=== PATIENT | male | born 1965 | race Caucasian/White ===

== ENCOUNTER 2018-07-31 07:28 | Inpatient (IN) | payer BC ==
[2018-07-31 08:04] LABS: ABS Basophils 0.2 10^3/ul (0-0.2); ABS Eosinophils 0.1 10^3/ul (0-0.6); ABS Lymphocytes 1.7 10^3/ul (1.0-4.8); ABS Monocytes 0.4 10^3/ul (0-0.8); ABS Neutrophils 12.1 10^3/ul (1.5-7.7); ABS Nucleated RBC 0 10^3/ul; Eosinophil % 0.4 %; Hematocrit 51 % (42-52); Hemoglobin 16.6 g/dl (14.0-18.0); Lymphocyte % 11.5 %; Mean Corpuscular HGB Conc 33 g/dl (31-36); Mean Corpuscular Hemoglobin 28 pg (27-31); Mean Corpuscular Volume 85 fL (80-94); Mean Platelet Volume 7.1 fL (7.4-10.4); Nucleated Red Blood Cells % 0; Platelet Count 321 10^3/ul (150-450); Red Blood Count 5.97 10^6/ul (4.00-5.40); Red Cell Distribution Width 13 % (10.5-15); White Blood Count 14.4 10^3/ul (3.5-10.8)
[2018-07-31] MEDS: NS 0.9% 1000 ML** 2,000 ML IV ONE ×2 (08:17→08:24)
[2018-07-31 08:20] LABS: Albumin 4.3 g/dL (3.2-5.2); Albumin/Globulin Ratio 1.5 (1-3); BUN/Creatinine Ratio 30.6 (8-20); C Reactive Protein 5.68 mg/L (<8.01); Calcium 9.6 mg/dL (8.6-10.3); EGFR African American 75.6 (>60); EGFR Non-African American 62.5 (>60); Globulin 2.9 g/dL (2-4); Total Bilirubin 0.9 mg/dL (0.2-1.0); Total Protein 7.2 g/dL (6.4-8.9)
[2018-07-31] MEDS ORDERED: Ondansetron INJ* 2 MG/ML VIAL ONE (08:21)
[2018-07-31] MEDS ORDERED: Ondansetron INJ* 2 MG/ML VIAL IV ONE (08:23)
[2018-07-31 08:37] LABS: Potassium 5.1 mmol/L (3.5-5.0)
--- NOTE | 2018-07-31 08:45 | ED ---
HPI Diabetic - HPI Summary HPI Summary: A 52 y/o male presents to the ED c/o DKA. In the ED room, the patient has a pulse of 87 BPM, respiratory rate of 18, and blood pressure of 135/97. According to the patient, he thinks he has DKA as he is a Type I diabetic. He stated that he is on an insulin pump. He noted that the nausea and dehydration started last night, but became worse this morning. He thinks he has a "bad site " with his insulin pump. He was fine all day yesterday, but be did a site change last night, which is when he stated feeling ill. Patient noted that he has a "busted rib" on his left side. Patient denies any cough, fevers, SOB, or CP. - History Of Current Complaint Chief Complaint: EDDiabeticProb Time Seen by Provider: 07/31/18 07:44 Hx Obtained From: Patient Onset/Duration: Sudden Onset, Lasting Hours Timing: Hours Severity Currently: None Aggravating: Nothing Alleviating: Nothing Associated Signs & Symptoms: Nausea - Allergies/Home Medications Allergies/Adverse Reactions: Allergies Allergy/AdvReac Type Severity Reaction Status Date / Time ofloxacin Allergy Anaphylatic Verified 07/31/18 10:08 Shock Penicillins Allergy Anaphylatic Verified 07/31/18 10:08 Shock cheese AdvReac GI Upset Verified 07/31/18 08:38 Home Medications: Home Medications Atorvastatin* [Lipitor*] 40 mg PO DAILY 07/31/18 [History Confirmed 07/31/18] Dapagliflozin 10 mg Tab (Nf) [Farxiga] 10 mg PO DAILY 07/31/18 [History Confirmed 07/31/18] Escitalopram (NF) [Lexapro 10 mg (NF)] 10 mg PO DAILY 07/31/18 [History Confirmed 07/31/18] Glucagon,Human Recombinant [Glucagon Emergency Kit] 1 mg INJ ONCE PRN 07/31/18 [ History Confirmed 07/31/18] Insulin ASPART (NF) [Novolog (NF)] 0 - 75 units SUBCUT DAILY MDD 75 units [History Confirmed 07/31/18] Methylphenidate TAB* [Ritalin TAB*] 20 mg PO QAM 07/31/18 [History Confirmed ] Montelukast Sodium TAB* [Singulair TAB*] 10 mg PO BEDTIME 07/31/18 [History Confirmed 07/31/18] Ramipril CAP* [Altace CAP*] 5 mg PO DAILY 07/31/18 [History Confirmed 07/31/18] lamoTRIgine TAB(*) [LaMICtal TAB(*)] 150 mg PO DAILY 07/31/18 [History Confirmed 07/31/18] PMH/Surg Hx/FS Hx/Imm Hx Endocrine/Hematology History: Reports: Hx Diabetes Cardiovascular History: Denies: Hx Hypertension - Surgical History Surgery Procedure, Year, and Place: none Infectious Disease History: No Infectious Disease History: Denies: Traveled Outside the [place] in Last 30 Days - Family History Known Family History: Negative: Hypertension - Social History Alcohol Use: None Hx Substance Use: No Substance Use Type: Reports: None Smoking Status (MU): Never Smoked Tobacco Review of Systems Positive: Other - POSITIVE: DEHYDRATION. Negative: Fever Negative: Chest Pain Negative: Shortness Of Breath, Cough Positive: Nausea All Other Systems Reviewed And Are Negative: Yes Physical Exam - Summary Physical Exam Summary: VITAL SIGNS: Reviewed. GENERAL: Patient is a well-developed and nourished male who is lying comfortable in the stretcher. Patient is not in any acute respiratory distress. HEAD AND FACE: No signs of trauma. No ecchymosis, hematomas or skull depressions. No sinus tenderness. EYES: PERRLA, EOMI x 2, No injected conjunctiva, no nystagmus. EARS: Hearing grossly intact. Ear canals and tympanic membranes are within normal limits. MOUTH: Oropharynx within normal limits. Dry oral mucosa. NECK: Supple, trachea is midline, no adenopathy, no JVD, no carotid bruit, no c- spine tenderness, neck with full ROM. CHEST: Symmetric, tenderness on left side rib cage LUNGS: Clear to auscultation bilaterally. No wheezing or crackles. CVS: Regular rate and rhythm, S1 and S2 present, no murmurs or gallops appreciated. ABDOMEN: Soft, non-tender. No signs of distention. No rebound no guarding, and no masses palpated. Bowel sounds are normal. EXTREMITIES: FROM in all major joints, no edema, no cyanosis or clubbing. NEURO: Alert and oriented x 3. No acute neurological deficits. Speech is normal and follows commands. SKIN: Dry and warm Triage Information Reviewed: Yes Vital Signs On Initial Exam: Initial Vitals Temp Pulse Resp BP Pulse Ox 97 F 103 16 144/89 98 07/31/18 07:29 07/31/18 07:29 07/31/18 07:29 07/31/18 07:29 07/31/18 07:29 Vital Signs Reviewed: Yes Diagnostics - Vital Signs Vital Signs Temp Pulse Resp BP Pulse Ox 07/31/18 07:29 97 F 103 16 144/89 98 - Laboratory Lab Results: Lab Results 07/31/18 07/31/18 07/31/18 Range/Units 07:00 07:00 07:00 WBC 14.4 H (3.5-10.8) 10^3/ul RBC 5.97 H (4.00-5.40) 10^6/ul Hgb 16.6 (14.0-18.0) g/dl Hct 51 (42-52) % MCV 85 (80-94) fL MCH 28 (27-31) pg MCHC 33 (31-36) g/dl RDW 13 (10.5-15) % Plt Count 321 (150-450) 10^3/ul MPV 7.1 L (7.4-10.4) fL Neut % (Auto) 84.2 % Lymph % (Auto) 11.5 % Yates % (Auto) 2.8 % Eos % (Auto) 0.4 % Baso % (Auto) 1.1 % Absolute Neuts (auto) 12.1 H (1.5-7.7) 10^3/ul Absolute Lymphs (auto) 1.7 (1.0-4.8) 10^3/ul Absolute Monos (auto) 0.4 (0-0.8) 10^3/ul Absolute Eos (auto) 0.1 (0-0.6) 10^3/ul Absolute Basos (auto) 0.2 (0-0.2) 10^3/ul Absolute Nucleated RBC 0 10^3/ul Nucleated RBC % 0 VBG pH (7.32-7.43) VBG pCO2 (41-51) mmHg VBG pO2 (35-45) mmHg VBG HCO3 (24-28) mmol/L VBG O2 Saturation (70-80) % VBG Base Excess (0.0-4.0) mmol/L Sodium 132 L (135-145) mmol/L Potassium 5.1 H (3.5-5.0) mmol/L Chloride 93 L (101-111) mmol/L Carbon Dioxide 20 L (22-32) mmol/L Anion Gap 19 H (2-11) mmol/L BUN 37 H (6-24) mg/dL Creatinine 1.21 H (0.67-1.17) mg/dL Est GFR ( Amer) 75.6 (>60) Est GFR (Non-Af Amer) 62.5 (>60) BUN/Creatinine Ratio 30.6 H (8-20) Glucose 505 H* (70-100) mg/dL POC Glucose (mg/dL) (70-100) mg/dL Lactic Acid 2.3 H* (0.5-2.0) mmol/L Calcium 9.6 (8.6-10.3) mg/dL Total Bilirubin 0.90 (0.2-1.0) mg/dL AST 11 L (13-39) U/L ALT 16 (7-52) U/L Alkaline Phosphatase 226 H (34-104) U/L C-Reactive Protein 5.68 (<8.01) mg/L Total Protein 7.2 (6.4-8.9) g/dL Albumin 4.3 (3.2-5.2) g/dL Globulin 2.9 (2-4) g/dL Albumin/Globulin Ratio 1.5 (1-3) 07/31/18 07/31/18 Range/Units 07:00 07:42 WBC (3.5-10.8) 10^3/ul RBC (4.00-5.40) 10^6/ul Hgb (14.0-18.0) g/dl Hct (42-52) % MCV (80-94) fL MCH (27-31) pg MCHC (31-36) g/dl RDW (10.5-15) % Plt Count (150-450) 10^3/ul MPV (7.4-10.4) fL Neut % (Auto) % Lymph % (Auto) % Yates % (Auto) % Eos % (Auto) % Baso % (Auto) % Absolute Neuts (auto) (1.5-7.7) 10^3/ul Absolute Lymphs (auto) (1.0-4.8) 10^3/ul Absolute Monos (auto) (0-0.8) 10^3/ul Absolute Eos (auto) (0-0.6) 10^3/ul Absolute Basos (auto) (0-0.2) 10^3/ul Absolute Nucleated RBC 10^3/ul Nucleated RBC % VBG pH 7.21 L (7.32-7.43) VBG pCO2 44 (41-51) mmHg VBG pO2 43.0 (35-45) mmHg VBG HCO3 16.4 L (24-28) mmol/L VBG O2 Saturation 69.7 L (70-80) % VBG Base Excess -10.0 L (0.0-4.0) mmol/L Sodium (135-145) mmol/L Potassium (3.5-5.0) mmol/L Chloride (101-111) mmol/L Carbon Dioxide (22-32) mmol/L Anion Gap (2-11) mmol/L BUN (6-24) mg/dL Creatinine (0.67-1.17) mg/dL Est GFR ( Amer) (>60) Est GFR (Non-Af Amer) (>60) BUN/Creatinine Ratio (8-20) Glucose (70-100) mg/dL POC Glucose (mg/dL) > 444 H* (70-100) mg/dL Lactic Acid (0.5-2.0) mmol/L Calcium (8.6-10.3) mg/dL Total Bilirubin (0.2-1.0) mg/dL AST (13-39) U/L ALT (7-52) U/L Alkaline Phosphatase (34-104) U/L C-Reactive Protein (<8.01) mg/L Total Protein (6.4-8.9) g/dL Albumin (3.2-5.2) g/dL Globulin (2-4) g/dL Albumin/Globulin Ratio (1-3) Result Diagrams: 07/31/18 07:00 07/31/18 16:09 Lab Statement: Any lab studies that have been ordered have been reviewed, and results considered in the medical decision making process. - Radiology CXR Radiology Interpretation Completed By: Radiologist Summary of Radiographic Findings: No active cardiopulmonary disease is noted. ED PHYSICIAN REVIEWED THIS RADIOLOGY REPORT. - EKG 0812 Cardiac Rate: NL - 79 BPM EKG Rhythm: Sinus Rhythm - 79 BPM Summary of EKG Findings: no ST elevations Re-Evaluation - Re-Evaluation First Eval Re-Evaluation Time: 08:54 Change: Unchanged Comment: Awaiting call back from train station server. Diabetic Course/Dx - Course Assessment/Plan: A 52 y/o male presents to the ED c/o DKA. In the ED room, the patient has a pulse of 87 BPM, respiratory rate of 18, and blood pressure of 135 /97. According to the patient, he thinks he has DKA as he is a Type I diabetic. He stated that he is on an insulin pump. He noted that the nausea and dehydration started last night, but became worse this morning. He thinks he has a "bad site" with his insulin pump. He was fine all day yesterday, but be did a site change last night, which is when he started feeling ill. Patient noted that he has a "busted rib" on his left side. Patient denies any cough, fevers, SOB, or CP. Initially the patient was placed in a cardiac rehab nurse, IV access was obtained and he was given 2 L of IV fluids. Blood work shows wbcs of 14.4 , normal H&H and normal platelets. VBG with a pH of 7.21. CMP shows a sodium 132, potassium 5.1, carbon dioxide is 20, and annual gap is 19 consistent with a DKA. BUN is 37 and creatinine 1.21. Glucose is 505, lactic acid is 2.3, probably secondary to the hyperglycemia. The patient has nausea therefore he was given 4 mg of Zofran and the patient feels better. The patient is able to tolerate ice chips. Patient was started on an insulin drip. I discuss my physical exam, findings and test results with Dr. Navas from the hospitalist services and he agrees to admit patient to his services. Patient is hemodynamically stable alert and oriented x 3. - Diagnoses Differential Dx: Diabetic Ketoacidosis, Hyperglycemia Provider Diagnoses: DKA (diabetic ketoacidosis) - Physician Notifications Discussed Care Of Patient With: Edwin Navas Time Discussed With Above Provider: 09:45 Instructed by Provider To: Other - Accepts patient for admission. - Critical Care Time Critical Care Time: 75-104 min Discharge - Sign-Out/Discharge Documenting (check all that apply): Patient Departure - ADMIT, Sign-Out Patient - YOSEF Signing out patient TO: Edwin Yosef Receiving patient FROM: Eduardo Garza - Discharge Plan Condition: Stable Disposition: ADMITTED TO [facility] - Billing Disposition and Condition Condition: STABLE Disposition: Admitted to [facility] - Attestation Statements Document Initiated by Scribe: Yes Documenting Scribe: Sincere Ferrer Provider For Whom Scribe is Documenting (Include Credential): Eduardo Garza MD Scribe Attestation: Sincere Cervantes, scribed for Eduardo Garza MD on 07/31/18 at 1842. Scribe Documentation Reviewed: Yes Provider Attestation: The documentation as recorded by the Sincere tesfaye accurately reflects the service I personally performed and the decisions made by Eduardo russell MD Status of Scribe Document: Viewed Attestations Scribe Attestation: Sincere Ferrer User Type: Provider
[2018-07-31 08:49] LABS: Urine Appearance Clear; Urine Bilirubin Negative (Negative); Urine Blood Negative (Negative); Urine Color Straw; Urine Glucose 3+(>=500 mg/dL) (Negative); Urine Ketones 2+ (Negative); Urine Nitrite Negative (Negative); Urine Protein Negative (Negative); Urine Specific Gravity 1.028 (1.010-1.030); Urine Urobilinogen Negative (Negative)
[2018-07-31] MEDS ORDERED: Insulin IVPB 100 units/100 ml 100 UNITS/100 ML UNIT IVPB SCH (09:00)
[2018-07-31 09:05] LABS: Magnesium 2.3 mg/dL (1.9-2.7)
[2018-07-31 09:08] LABS: Barbiturates Urine Screen None Detected (None Detect); Benzodiazepine Urine Screen None Detected (None Detect); Urine Cannabinoids Screen None Detected (None Detect)
[2018-07-31] MEDS ORDERED: Ondansetron INJ* 2 MG/ML VIAL IV PRN (10:26)
[2018-07-31] MEDS ORDERED: Acetaminophen TAB* 325 MG PO PRN (10:26)
[2018-07-31] MEDS ORDERED: NS 0.9% 1000 ML** 1,000 ML IV SCH (10:30)
[2018-07-31 11:14] LABS: BUN/Creatinine Ratio 33.3 (8-20); Calcium 8.9 mg/dL (8.6-10.3); EGFR African American 83.5 (>60); Potassium 4.6 mmol/L (3.5-5.0)
[2018-07-31 12:42] LABS: Albumin 4.1 g/dL (3.2-5.2); Albumin/Globulin Ratio 1.6 (1-3); BUN/Creatinine Ratio 34.7 (8-20); Calcium 8.9 mg/dL (8.6-10.3); EGFR African American 93.1 (>60); Globulin 2.5 g/dL (2-4); Potassium 4.2 mmol/L (3.5-5.0); Total Bilirubin 0.6 mg/dL (0.2-1.0); Total Protein 6.6 g/dL (6.4-8.9)
--- NOTE | 2018-07-31 13:59 | HP ---
CC: Dr. Brian Mistry, [facility] * DATE OF ADMISSION: 07/31/2018. PRIMARY CARE PHYSICIAN: Dr. Brian Mistry, [facility]. HEALTHCARE PROXY: His mother Sofy. CODE STATUS: Full. History obtained from interview with patient and review of past medical records. RELIABILITY: Good. CHIEF COMPLAINT: Nausea and vomiting. HISTORY OF PRESENT ILLNESS: This is a 52-year-old man with a past medical history of type 1 diabetes diagnosed in 1996 with a strong family history of type 1 diabetes in his two brothers and his sister who had been feeling well yesterday when he woke up in the afternoon, did a site change for his insulin infusion pump, woke up overnight with increased urination as well as thirst. He woke up in the morning, his fingerstick was about in the 380s which he administered bolus insulin from his pump for correction. 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 He pulled over and vomited and continued on to work where he had several more episodes of emesis. He suspected he was going into DKA and for that reason presented to the emergency room. Other associated symptoms present this morning prior to presenting to the emergency room include headache and malaise. He denies any recent cough, fevers, chills, night sweats, symptoms, skin rash, changes in medication, or penile discharge. He does note two weeks prior to presentation he had a fall where he suffered rib fractures on the left posterior. He also identifies increased stress recently which has been a trigger in the past for DKA. He notes his diet has changed, but to include eating smaller portions more regularly. Of note, during the physical exam we removed the catheter that should have been infusing insulin from his pump from the site on his belly and identified a kinked tubing inhibiting the administration of insulin since he changed the site yesterday afternoon. PAST MEDICAL/SURGICAL HISTORY: Include type 1 diabetes since 1996, hypertension , hyperlipidemia, bipolar disorder, appendectomy, tonsillectomy, rhinoplasty, broken ribs, left eye laser surgery two weeks prior to presentation. MEDICATIONS: Pharmacy is [facility] in [place]. The patient has a poor recollection of the precise medications and there doses: 1. Lamictal 1.5 tabs daily. 2. Ramipril. 3. Escitalopram. 4. Farxiga. 5. Insulin pump which administers 1.1 units per hour in addition to sliding scale based on fingersticks. ALLERGIES: CHEESE, PENICILLIN (CAUSED SHOCK/ANAPHYLAXIS AT AGE [id number]). FAMILY HISTORY: Notable for two brothers and a sister with type 1 diabetes. Father had either CAD or an aortic dissection, was at 58. SOCIAL HISTORY: Never tobacco, was a heavy drinker 15 years prior to presentation, history of polysubstance abuse 20 years prior to presentation. No IV drug use. REVIEW OF SYSTEMS: As per HPI, otherwise all of systems negative. PHYSICAL EXAMINATION GENERAL: Lying flat, interactive, pleasant, no apparent distress. VITAL SIGNS: In the emergency room as seen by this author, blood pressure 116/ 65, heart rate 80, respiratory rate 14, T-max in the emergency room is 97 Fahrenheit. HEENT: Oropharynx is clear. He has dry mucus membranes. Sclerae are anicteric. NECK: He has a nonelevated JVD. LUNGS: Clear to auscultation. HEART: Irregular rate and rhythm with no murmurs, rubs or gallops. ABDOMEN: Soft, nontender. He does have some tenderness over his left flank in the area where he had a recent rib fracture. EXTREMITIES: Warm, well-perfused. Less than two second cap refill. Good peripheral pulses. No clubbing, cyanosis, or edema. NEUROLOGIC: He is alert and oriented times three. His cranial nerves II through XII are intact. He has no apparent anxiety, agitation, or depression. LABORATORY DATA: Labs were reviewed. Presenting VBG pH 7.21. His bicarb is 20, his anion gap is 19, BUN 37, creatinine 1.21, no prior for a comparison, his glucose was 505 on presentation with a lactic acid of 2.3; white blood cell count of 14.4, hemoglobin 16.6, platelets 321. His urine is notable for ketones and glucose, negative Utox. DATA REVIEWED: Chest x-ray: No active cardiopulmonary disease. EKG: Sinus tachycardia. ASSESSMENT AND PLAN: This is a 52-year-old man, type 1 diabetic, presenting in DKA after changing the site of his infusion for his insulin pump. 1. DKA: Suspect in the setting of poor insulin administration in the setting of poor site access. The patient notes this has happened in the past when he changes sites. It hits an area that has been fibrotic. The catheter does not insert properly. Fortunately, the patient is attuned to his symptoms and identified DKA early. He has been started on an insulin drip in the emergency room. Will continue insulin drip per protocol. Plan on adjusting as fingersticks are indicated with q.2 hour fingersticks. Serial BMP's every 4 hours. Replace potassium as necessary. Plan on transitioning to D5 if necessary if fingersticks decline before gap is closed. Continue normal saline at 150 cc per hour for two additional liters, has already received two liters, no longer tachycardic nor hypotensive. Liberalize diet to include water only. 2. Lactic acidosis: Suspected in the setting of DKA. Repeat with next BMP at noon. 3. Acute kidney injury suspected, although no prior for comparison. Suspect in the setting of DKA. Will rehydrate in the setting of above or as indicated above. Suspect prerenal etiology. 4. Hypertension: Hold home medications. 5. Bipolar disorder: Holding medications until doses can be verified. 6. DVT prophylaxis: Low risk based on DVT assessment. SCD's. Ambulate ad samuel when able. Greater than 60 minutes were spent on the admission of this patient, greater than half was spent [id number] with the patient. [id number]/[facility] #: [id number] JOSEY
[2018-07-31] MEDS ORDERED: D5W 1/2 NS 1000 ML BAG* 1,000 ML IV SCH (14:00)
[2018-07-31 16:33] LABS: BUN/Creatinine Ratio 34.1 (8-20); Calcium 8.5 mg/dL (8.6-10.3); EGFR African American 105.1 (>60); EGFR Non-African American 86.8 (>60); Potassium 4.6 mmol/L (3.5-5.0)
[2018-07-31] MEDS ORDERED: Dextrose 50% Syringe 50 ML* 25 GM/50 ML SYRINGE IV PUSH PRN (17:11)
[2018-07-31] MEDS ORDERED: Insulin GLARGINE(*) 1 UNITS UNIT SUBCUT SCH (18:00)
[2018-07-31] MEDS: Insulin LISPRO* 1 UNITS UNIT SUBCUT SCH (20:40)
[2018-07-31 20:58] LABS: BUN/Creatinine Ratio 29.6 (8-20); Calcium 8.1 mg/dL (8.6-10.3); EGFR African American 96.4 (>60); EGFR Non-African American 79.7 (>60); Potassium 4.5 mmol/L (3.5-5.0)
[2018-07-31] MEDS ORDERED: Montelukast Sodium TAB* 10 MG PO SCH (21:00)
[2018-08-01 06:45] LABS: ABS Basophils 0.1 10^3/ul (0-0.2); ABS Eosinophils 0.3 10^3/ul (0-0.6); ABS Lymphocytes 2.9 10^3/ul (1.0-4.8); ABS Monocytes 0.8 10^3/ul (0-0.8); ABS Neutrophils 8.7 10^3/ul (1.5-7.7); ABS Nucleated RBC 0 10^3/ul; Eosinophil % 2.4 %; Hematocrit 42 % (42-52); Lymphocyte % 22.8 %; Mean Corpuscular HGB Conc 34 g/dl (31-36); Mean Corpuscular Hemoglobin 28 pg (27-31); Mean Corpuscular Volume 83 fL (80-94); Mean Platelet Volume 6.7 fL (7.4-10.4); Nucleated Red Blood Cells % 0; Platelet Count 248 10^3/ul (150-450); Red Blood Count 4.99 10^6/ul (4.00-5.40); Red Cell Distribution Width 13 % (10.5-15); White Blood Count 12.7 10^3/ul (3.5-10.8)
[2018-08-01 07:06] LABS: BUN/Creatinine Ratio 30.7 (8-20); EGFR African American 109.2 (>60); EGFR Non-African American 90.2 (>60); Magnesium 1.8 mg/dL (1.9-2.7); Potassium 3.9 mmol/L (3.5-5.0)
[2018-08-01] MEDS ORDERED: Atorvastatin* 40 MG TAB PO SCH (09:00)
[2018-08-01] MEDS ORDERED: DAPAGLIFLOZIN 10 MG TAB (NF) PO SCH (09:00)
[2018-08-01] MEDS ORDERED: CMC:Escitalopram (NF) 10 MG TAB PO SCH (09:00)
[2018-08-01] MEDS ORDERED: lamoTRIgine TAB(*) 100 MG PO SCH (09:00)
[2018-08-01] MEDS ORDERED: Methylphenidate TAB* 10 MG PO SCH (09:00)
[2018-08-01] MEDS: Insulin LISPRO* 1 UNITS UNIT SUBCUT SCH (10:03)
[2018-08-01 10:10] VITALS: BP 119/82
--- NOTE | 2018-08-01 13:25 | DS ---
CC: Dr. Brian Mistry in [place] * DISCHARGE SUMMARY: DATE OF ADMISSION: DATE OF DISCHARGE: 08/01/18 HOSPITAL COURSE: This 52-year-old man presented with diabetic ketoacidosis. He has type 1 diabetes since 1996. He has had an insulin pump for many years. He changes the site every 3 days. For some reason, he changed the site in the evening of 07/29/18 and went bed. In the morning, his blood sugar was over 300. He gave himself a correction factor. He said it is not unprecedented for his blood sugar to be over 300 in the morning, even with pump working properly. He then went to work and on the way to work, he realized he was sick and getting DKA, he was slowing up. He came to the emergency room. He was given intravenous insulin and fluids. His anion gap corrected within a matter of hours. He is completely well this morning. He checks his blood sugar many times a day. He will plan on doing site changes only in the morning this time and going forward. For some reason, he needs to change the site at bedtime. He will set an alarm and check his blood sugar 3 or 4 hours afterwards. He noticed he is a brittle diabetic and that has had episodes in the past where the pump was not working and he goes into DKA in roughly 12 hours. DISCHARGE DIAGNOSES: 1. Diabetic ketoacidosis. 2. Hypertension. 3. Hyperlipidemia. 4. Bipolar disorder. DISCHARGE MEDICATIONS: 1. Lamotrigine 150 mg daily. 2. NovoLog insulin by pump. 3. Escitalopram 10 mg daily. 4. Ramipril 5 mg daily. 5. Montelukast 10 mg bedtime. 6. Methylphenidate 20 mg every morning. 7. Dapagliflozin 10 mg daily. 8. Atorvastatin 40 mg daily. 9. Glucagon as prescribed. CONDITION ON DISCHARGE: Good. DISPOSITION ON DISCHARGE: Discharged to home. [id number]/[facility] #: [id number] MTDD
== END 2018-08-01 10:40 | disposition home or self-care (01) | DRG 420 ==
LOC: ED 07:28 → ICU 10:26
PROVIDERS: ADMIT Internal Medicine; ATTEND Internal Medicine
DX: E10.10 Type 1 diabetes mellitus with ketoacidosis without coma (principal); Z96.41 Presence of insulin pump (external) (internal); I10 Essential (primary) hypertension; E78.5 Hyperlipidemia, unspecified; F31.9 Bipolar disorder, unspecified; E86.0 Dehydration; Z79.4 Long term (current) use of insulin; Z90.89 Acquired absence of other organs; Z88.0 Allergy status to penicillin; Z91.011 Allergy to milk products; Z83.3 Family history of diabetes mellitus; Z82.49 Family history of ischemic heart disease and other diseases of the circulatory system; Z88.1 Allergy status to other antibiotic agents
CPT/HCPCS: 36415; 71046; 80048; 80053; 80307; 81003; 82803; 83036; 83605; 83735; 85025; 86140; 87641; 93005; 99285; A9270-GY; J1815; J2405